=== PATIENT | male | born 1965 | race African-American/Black ===

== ENCOUNTER 2017-10-01 19:05 | Emergency (ER) | payer OTHER ==
[~2017-10-01] VITALS: Ht 165.1 cm; Wt 65.0 kg
[2017-10-01] MEDS ORDERED: NAPROSYN500 MG PO (21:47)
[2017-10-01] MEDS ORDERED: SKELAXIN800 MG PO (21:47)
[2017-10-01 21:57] VITALS: BP 119/89
== END 2017-10-01 21:58 | disposition home or self-care (01) ==
LOC: EME 19:05
DX: S33.9XXA Sprain of unspecified parts of lumbar spine and pelvis, initial encounter (principal); S93.401A Sprain of unspecified ligament of right ankle, initial encounter; V47.0XXA Car driver injured in collision with fixed or stationary object in nontraffic accident, initial encounter; Y92.410 Unspecified street and highway as the place of occurrence of the external cause
CPT/HCPCS: 73610; 73630; 99281; 99284